=== PATIENT | male | born 1950 | race Caucasian/White ===

== ENCOUNTER 2024-09-08 23:48 | Emergency (ER) | payer OTHER, SELFPAY ==
[2024-09-08 23:49] VITALS: BP 178/121; PULSE 166; RESP 14; TEMP 36.7; O2SAT 96; BMI 41.5
--- NOTE | 2024-09-09 00:01 | EKG12_ITS ---
Test Reason : CP Blood Pressure : */* mmHG Vent. Rate : 96 BPM Atrial Rate : 96 BPM P-R Int : 160 ms QRS Dur : 126 ms QT Int : 342 ms P-R-T Axes : 33 -3 39 degrees QTcB Int : 432 ms Sinus rhythm with occasional Premature ventricular complexes Non-specific intra-ventricular conduction block Inferior infarct , age undetermined Abnormal ECG Confirmed by Randy Quigley ([id number]), medical editor FRANCES COLMENARES ([id number]) on 09/11/2024 6:24:19 AM Referred By: Confirmed By: Randy Quigley
--- NOTE | 2024-09-09 00:02 | EDS_ITS ---
HPI History of Present Illness Chief Complaint: Palpitations Informant: patient, spouse/S.O. and family (Son) Narrative Narrative: 74-year-old male presenting to the emergency room with palpitations. Patient states tonight he was at a calling hours for a when he began to have heaviness in his fingers. He felt that his heart was racing and slight chest discomfort. He has not experienced this before. He came to the emergency room and while nursing was starting an IV the patient reportedly converted from a narrow complex tachycardic rhythm at a rate of around 150 back to sinus rhythm and his symptoms abated. He notes that for the past couple months he has been taking triamterene hydrochlorothiazide for leg swelling and blood pressure. He states he had a home sleep study a month ago and is waiting to hear the results of that. [facility] Medical History Hypertension Home Medications ?Medication ?Instructions ?Recorded ?Last Taken ?Type triamterene 37.5 0.5 cap PO DAILY 09/08/24 Unknown History mg-hydrochlorothiazide 25 mg capsule Allergy/AdvReac Type Severity Reaction Status Date / Time No Known Allergies Allergy Verified 09/08/24 23:50 Social History Smoking Status: Never smoker ROS ROS ED Constitutional Constitutional ED: Denies chills, fever(s) or weight loss Eyes Eyes: Denies change in vision or diplopia ENT ENT ED: Denies ear pain, rhinorrhea or sore throat Cardiovascular Cardiovascular: Reports chest pain and palpitations; Denies orthopnea or racing heartbeat Respiratory/Chest Respiratory/Chest: Denies cough, dyspnea or orthopnea Gastrointestinal Gastrointestinal: Denies abdominal pain, diarrhea, nausea or vomiting Genitourinary Genitourinary ED: Denies dysuria, hematuria or urinary frequency Musculoskeletal Musculoskeletal: Denies arthralgias or myalgias Integumentary Denies abscess or rash Neurologic Neurologic: Denies headache(s) or weakness Psychiatric Psychiatric: Denies anxiety, depression, suicidal ideation or suicidal thoughts Endocrine Endocrinology: Denies polydipsia, polyphagia or polyuria Allergic/Immunologic Allergic/Immunologic ED: Denies mouth swelling, tongue swelling or urticaria EXAM Physical Exam Const Vital Signs: 09/08/24 23:49 09/08/24 23:49 09/09/24 00:21 Temperature 98.1 F Temperature Source Oral Pulse Rate 166 H 95 Respiratory Rate 14 16 Respiratory Effort Normal Non-Labored Blood Pressure 178/121 H 150/99 H Blood Pressure Mean 140 116 Pulse Ox 96 93 Oxygen Delivery Method Room Air Room Air 09/09/24 01:00 Temperature Temperature Source Pulse Rate 97 Respiratory Rate 18 Respiratory Effort Blood Pressure 135/93 H Blood Pressure Mean 107 Pulse Ox 93 Oxygen Delivery Method Room Air Positive well nourished, well developed and obese General Appearance ED: well developed and NAD Nutritional Appearance: obese HEENT Reports normocephalic, head/scalp atraumatic and moist mucous membranes Eyes PERRL and EOMs intact bilaterally Neck no lymphadenopathy, supple and no JVD Resp normal respiratory effort and clear to auscultation bilaterally Cardio regular rate, regular rhythm and no murmurs GI normal to inspection, nondistended, normoactive bowel sounds and non-tender Palpation: soft Back/Spine no CVA tenderness and normal ROM Extremity General Extremety ED: Yes edema General Extremity: edema bilateral lower extremity Details: mild Neuro oriented x3 and CN's II-XII intact bilaterally Sensorium / Orientation: alert Motor Exam: strength 5/5 throughout Psych mental status grossly normal Mood & Affect: Negative for depressed or tearful Skin no rashes or lesions noted and no wounds MDM MDM MDM Narrative Medical decision making narrative: Differential diagnosis includes cardiac dysrhythmias (SVT AVNRT atrial flutter atrial fibrillation) electrolyte abnormalities anemia sleep apnea with pulmonary hypertension hyperthyroidism Patient is EKG is in normal sinus rhythm. He is maintaining this at a rate around 90 blood pressures come down currently 135/93. My independent interpretation of his chest x-ray is normal mediastinal silhouette. Hemoglobin is 16.6. Sodium potassium magnesium within normal limits glucose 132. BUN of 23 creatinine 1.14 troponin is 9 TSH is 4.320. I spoke with the patient and his family regarding the above results. I am recommending a cardiology outpatient evaluation. We talked about whether or not to start him on a rate limiting agent such as metoprolol but as this is an isolated event and he would prefer not to be on medications I think it is reasonable to hold. We talked about anticoagulation but I do not feel strongly that this is needed at this time. His [id number] score is 2. Patient is comfortable with this plan we will schedule outpatient follow-up return if worsening or concerns. History & Record Review Discussion w/independent historian: Patient, Family (Son) and Significant other Lab Data Attestation: I reviewed the patient's lab results. Labs: Laboratory Results - last 24 hr 09/08/24 09/08/24 00:00 23:50 WBC 12.1 H RBC 5.59 Hgb 16.6 H Hct 49.9 MCV 89.3 MCH 29.7 MCHC 33.3 RDW Std Deviation 44.1 H RDW Coeff of Jeanette 13.5 Plt Count 292 MPV 10.0 Immature Gran % (Auto) 0.600 Neut % (Auto) 52.9 Lymph % (Auto) 30.4 [place] % (Auto) 9.9 Eos % (Auto) 5.5 H Baso % (Auto) 0.7 Absolute Neuts (auto) 6.4 Absolute Lymphs (auto) 3.67 Nucleated RBC % 0 Sodium 140 Potassium 3.6 Chloride 106 Carbon Dioxide 27.0 Anion Gap 7 BUN 23 H Creatinine 1.14 Estim Creat Clear Calc 68.28 Est GFR (MDRD) Af Amer 81 Est GFR (MDRD) Non-Af 67 BUN/Creatinine Ratio 20.2 H Glucose 132 H Calcium 9.2 Magnesium 2.0 Troponin I High Sens 9 TSH 4.320 H Radiography Diagnostic Testing: Clinical Impression(s) from Imaging Studies Chest X-Ray 09/09/24 00:15 IMPRESSION: No radiographic evidence of acute cardiopulmonary disease. Electronically Signed: Randy Smart MD at 0:37 EST , EKG Initial EKG: Attestation: I personally reviewed and interpreted this EKG as follows: Comments: Sinus vent rate of 96 bpm. PVCs noted Discharge Plan Triage Chief Complaint: Palpitations ED Provider: Jovan Saravia Dx/Rx/DC Orders Clinical Impression: SVT (supraventricular tachycardia), Heart palpitations Instructions: ED Understanding Supraventricular Tachycardia (SVT) Prescriptions: No Action triamterene-hydrochlorothiazid 37.5-25 mg capsule 0.5 cap PO DAILY Primary Care Provider: Vidal Howe Referrals: Vidal Howe, [Primary Care Provider] - (Call on Wednesday to see about the results of your sleep test.) Randy uQigley MD [Med Staff - Active Staff] - As soon as possible (For cardiology evaluation) Print Language: Tanzanian Disposition Disposition: Home, Self Care
--- NOTE | 2024-09-09 00:15 | RAD_ITS ---
EXAM: XR CHEST, 1 VIEW CLINICAL INDICATION: chest pain TECHNIQUE: Frontal view of the chest. COMPARISON: No relevant prior studies available. FINDINGS: LUNGS AND PLEURAL SPACES: Unremarkable. No consolidation or edema. No pneumothorax. No effusion. HEART: Unremarkable. Cardiac silhouette not enlarged. MEDIASTINUM: Central airways and mediastinal contour are unremarkable. BONES/JOINTS: Unremarkable. No acute fracture. SOFT TISSUES: Unremarkable. RAD/Chest 1 View (Portable) IMPRESSION: No radiographic evidence of acute cardiopulmonary disease. Electronically Signed: Randy Smart MD at 0:37 EST ,
[2024-09-09 00:21] VITALS: BP 150/99; PULSE 95; RESP 16; O2SAT 93
[2024-09-09 00:22] LABS: Absolute Lymphocyte Count 3.67 X10^3/uL (0.83-4.51); Absolute Neutrophil Count 6.4 X10^3/uL (2.0-7.7); Basophil# 0.09 X10^3/uL; Basophil% 0.7 % (0-1); Eosinophil# 0.66 X10^3/uL; Eosinophils% 5.5 % (0-5); Hematocrit 49.9 % (40-54); Hemoglobin 16.6 g/dL (13.0-16.5); Lymphocyte # 3.67 X10^3/ul (0.83-4.51); Lymphocyte % 30.4 % (19-41); Mean Corp Hgb Conc 33.3 g/dL (32-36); Mean Corpuscular Hgb 29.7 pg (27.0-32.0); Mean Corpuscular Volume 89.3 fL (80-94); Monocyte# 1.19 X10^3/uL; Monocyte% 9.9 % (0-10); NRBC Flagged by Analyzer 0 % (0-5); Neutrophil % 52.9 % (47-70); Platelet Count 292 K/mm3 (150-450); RBC Distribution Width CV 13.5 % (11.6-14.6); RBC Distribution Width SD 44.1 fl (35.1-43.9); Red Blood Count 5.59 M/mm3 (4.6-6.2); White Blood Count 12.1 K/mm3 (4.4-11.0)
[2024-09-09 00:44] LABS: Anion Gap 7 (5-15); BUN 23 mg/dL (7-18); BUN/Creat Ratio 20.2 RATIO (10-20); Calcium,Total 9.2 mg/dL (8.5-10.1); Chloride 106 mmol/L (98-107); Creatinine, Serum 1.14 mg/dL (0.70-1.30); EST Glomerular Filtration Rate 67 mL/min (>60); Est Glom Filt Rate - Afr Amer 81 mL/min (>60); Estimated Creatinine Clearance 68.28 ml/min; Glucose 132 mg/dL (74-106); Potassium 3.6 mmol/L (3.5-5.1); Sodium Level 140 mmol/L (136-145); Troponin-I HS 9 pg/mL (3.0-78.0)
[2024-09-09 01:00] VITALS: BP 135/93; PULSE 97; RESP 18; O2SAT 93
[2024-09-09 01:26] VITALS: BP 129/89; PULSE 91; RESP 16; TEMP 36.1; O2SAT 97
== END 2024-09-09 01:27 | disposition home or self-care (01) ==
PROVIDERS: Emergency Provider Emergency Medicine; PCP Family Medicine; Visit Provider Emergency Medicine
DX: I47.10 Supraventricular tachycardia, unspecified (principal); I10 Essential (primary) hypertension
CPT/HCPCS: 71045; 80048; 83735; 84443; 84484; 85025; 93005; 99284; A4216

== ENCOUNTER → 2024-10-10 | Outpatient (CLI) | payer SELFPAY ==
--- NOTE | 2024-10-10 08:52 | ECHOD_ITS ---
Reason For Study: PALPITATIONS Procedure This was a 2D Doppler, Color Flow transthoracic echocardiogram. The study was technically difficult. Exam performed in department. Left Ventricle Normal LV size. Mild concentric left ventricular hypertrophy. Left ventricular systolic function is normal. Stage 1 diastolic dysfunction. The left ventricular ejection fraction is 55 %. No regional wall motion abnormalities noted. Right Ventricle Normal right ventricle. Normal systolic function. Atria Normal left atrium. Normal right atrium. Mitral Valve Normal mitral valve. Tricuspid Valve Normal tricuspid valve. Aortic Valve Trisinus/trileaflet aortic valve. Pulmonic Valve The pulmonic valve is not well visualized. Great Vessels Normal aortic root. The pulmonary artery is normal size. Normal inferior vena cava. Pericardium/Pleural No pericardial effusion. MMode/2D Measurements & Calculations LVIDd: 5.3 cm IVSd: 1.4 cm LVOT diam: 2.1 cm LVIDs: 3.5 cm LVPWd: 1.4 cm LVOT area: 3.4 cm2 RVDd: 4.0 cm FS: 32.8 % asc Aorta Diam: 3.9 cm LAV(MOD-bp): 28.5 ml LVAd ap4: 27.0 cm2 LAV(MOD-bp) Indexed: 12.8 ml/m2 LVLd ap4: 7.4 cm LAV(MOD-sp2): 35.6 ml EDV(MOD-sp4): 84.1 ml LAV(MOD-sp4): 23.7 ml EDV(sp4-el): 83.3 ml LVAs ap4: 15.5 cm2 LVLs ap4: 6.5 cm ESV(MOD-sp4): 33.8 ml ESV(sp4-el): 31.5 ml EF(MOD-sp4): 59.8 % EF(sp4-el): 62.1 % LVAd ap2: 21.8 cm2 SV(MOD-sp4): 50.3 ml SV(MOD-sp2): 38.7 ml LVLd ap2: 6.9 cm SI(MOD-sp4): 22.5 ml/m2 SI(MOD-sp2): 17.3 ml/m2 EDV(MOD-sp2): 56.4 ml EDV(sp2-el): 58.2 ml LVAs ap2: 10.8 cm2 LVLs ap2: 5.6 cm ESV(MOD-sp2): 17.7 ml ESV(sp2-el): 17.8 ml EF(MOD-sp2): 68.5 % SV(sp4-el): 51.8 ml Ao sinus diam: 3.[address] Junction: 3.1 cm LA dimension(2D): 3.5 cm LA A4 area: 12.4 cm2 RA A4 area: 13.6 cm2 TAPSE: 2.7 cm Time Measurements MV dec time: 0.20 sec Doppler Measurements & Calculations MV E max mani: 66.2 cm/sec Lat Peak E' Mani: 8.9 cm/sec Med Peak E' Mani: 7.2 cm/sec MV A max mani: 100.4 cm/sec E/E' lat: 7.5 E/E' med: 9.2 MV E/A: 0.66 MV dec slope: 327.8 cm/sec2 Ao V2 max: 140.1 cm/sec LV V1 max: 102.1 cm/sec Ao max P.9 mmHg LV V1 max P.2 mmHg Ao V2 mean: 97.1 cm/sec LV V1 mean P.9 mmHg Ao mean P.3 mmHg LV V1 mean: 83.3 cm/sec Ao V2 VTI: 29.9 cm LV V1 VTI: 22.8 cm AV (velocity ratio): 0.76 [place](I,D): 2.6 cm2 [place](V,D): 2.5 cm2 SV(LVOT): 77.7 ml PA V2 max: 90.3 cm/sec ECHO/Echo Complete Interpretation Summary Normal LV size. Left ventricular systolic function is normal. Mild concentric left ventricular hypertrophy. Stage 1 diastolic dysfunction. The left ventricular ejection fraction is 55 %. Ordering Physician: Randy Quigley Referring Physician: BANDAR COLBERT Performed By: Zohra Garcia RDCS
== END | disposition home or self-care (01) ==
LOC: CVS 08:50
PROVIDERS: PCP Family Medicine; Referring Provider Internal Medicine Cardiovascular Disease; Visit Provider Internal Medicine Cardiovascular Disease
DX: I47.10 Supraventricular tachycardia, unspecified (principal); R00.2 Palpitations
CPT/HCPCS: 93225; 93226; 93306

== ENCOUNTER → 2025-03-29 | Outpatient (CLI) | payer SELFPAY ==
[2025-03-29 13:19] LABS: Anion Gap 12 (5-15); BUN 17 mg/dL (4-19); BUN/Creat Ratio 17.3 RATIO (10-20); Calcium,Total 9.6 mg/dL (7.6-11.0); Carbon Dioxide 22.6 mmol/L (21.0-32.0); Chloride 105 mmol/L (98-108); Creatinine, Serum 0.96 mg/dL (0.70-1.20); EST Glomerular Filtration Rate 83 (>60); Glucose 95 mg/dL (70-99); Magnesium 2.2 mg/dL (1.5-2.2); Potassium 4.3 mmol/L (3.3-5.1); Sodium Level 140 mmol/L (133-145)
== END | disposition home or self-care (01) ==
LOC: LAB 11:04
PROVIDERS: PCP Family Medicine; Referring Provider Physician Assistant Medical; Visit Provider Physician Assistant Medical
DX: I49.3 Ventricular premature depolarization (principal)
CPT/HCPCS: 36415; 80048; 83735; 84443

== ENCOUNTER → 2025-04-12 | Outpatient (CLI) | payer SELFPAY | END | disposition home or self-care (01) | LOC: PSN 08:44 | PROVIDERS: PCP Family Medicine; Referring Provider Physician Assistant Medical; Visit Provider Physician Assistant Medical | DX: I49.3 Ventricular premature depolarization (principal) | CPT/HCPCS: 93225; 93226 ==

== ENCOUNTER → 2025-06-15 | Outpatient (CLI) | payer SELFPAY ==
--- OUTSIDE RECORDS SUMMARY | 2025-06-15 08:43 | XMS RPT_ITS | CCD ---
Author Organization [facility] Care Team Providers Care Healthcare Insurance Sales Agent Name Role Phone JODY LEAVITT Attending Unavailable JODY LEAVITT Primary Care Unavailable JODY LEAVITT Admitting Unavailable Dr. Vidal Howe DO Primary Care Provider [phone] Dr. Vidal Howe DO Referring Provider Arcelia Horne Attending Provider Arcelia Horne Referring Provider [phone] Shyam, Vidal Primary Care Unavailable Arcelia Horne Referring Unavail able Randy Quigley Attending Unavailable Good Cesar Attending Unavailable Shyam, Vidal Primary Care Unavailable Randy Quigley Referring Unavailable Good Cesar Attending Unavailable Shyam, Vidal Primary Care Unavailable Shyam, Vidal Primary Care Unavailable Arcelia Horne Attending Unavail able Shyam, Vidal Referring Unavailable Shyam, Vidal Referring Unavailable Randy Quigley Attending Unavailable Shyam, Vidal Primary Care Unavailable Randy Quigley Attending Unavailable Randy Quigley Referring Unavailable Shyam, Vidal Primary Care Unavailable Jovan Saravia Attending Unavailable Shyam, Vidal Primary Care Unavailable Shyam, Vidal Primary Care Unavailable Arcelia Horne Referring Unavail able Arcelia Horne Attending Unavail able Arcelia Horne Referring Unavail able Shyam, Vidal Primary Care Unavailable Arcelia Horne Attending Unavail able Arcelia Horne Referring Unavail able Shyam, Vidal Primary Care Unavailable Arcelia Horne Attending Unavail able Medications Current Medications Medication Drug Class(es) Dates Sig (Normalized) Sig (Original) 24 hr dilTIAZem hydrochloride 120 mg extended release oral capsule (3 sources) Calcium Channel Pao Start: 01-29-2025 take 1 capsule by mouth once daily in the morning Diltiazem Hcl 120 mg capsule,extended release 24hr Active 120 mg PO EVERY MORNING 30 January 29, 2025 12:00am hydroCHLOROthiazide 25 mg / triamterene 37.5 mg oral capsule (3 sources) Potassium-spari ng Diuretic, Thiazide Diuretic Start: 09-08-2024 Triamterene-Hydr ochlorothiazid 37.5-25 mg capsule Active 0.5 NMA PO DAILY September 08, 2024 1:00am Completed/Discontinued Medications Medication Drug Class(es) Dates Sig (Normalized) Sig (Original) 24 hr metoprolol succinate 25 mg extended release oral tablet (3 sources) beta-Adrenergic Pao Start: 10-24-2024 End: 01-29-2025 take 1 tablet by mouth once daily Metoprolol Succinate 25 mg tablet extended release 24 hr Discontinued 25 mg PO daily 90 3 October 24, 2024 1:00am January 29, 2025 4:23pm Problems Problem Classification Problem Date Documented Date Episodic/Chronic Cardiac dysrhythmias (9 sources) Multiple premature ventricular complexes; Translations: [Ventricular premature depolarization] Onset: 05-31-2025 03-29-2025 Chronic Cardiac dysrhythmias (5 sources) Palpitations; Translations: [Palpitations] Onset: 03-29-2025 09-22-2024 Episodic Essential hypertension (6 sources) Hypertensive disorder; Translations: [Essential (primary) hypertension] 09-29-2024 Chronic Residual codes; unclassified (6 sources) Obstructive sleep apnea syndrome; Translations: [Obstructive sleep apnea (adult) (pediatric)] 09-22-2024 Chronic Comment on above: Severe ION. Signific ant oxygen desaturation. Specifically, the time SpO2 was at or below 88% was 10 min. (3%) 08/02/24 Unclassified (1 source) Supraventricular tachycardia, unspecified; Translations: [Supraventricular tachycardia, unspecified] Onset: 09-29-2024 Results Test Name Value Interpretation Reference Range Facility Anion gap in Serum or Plasma Ordered By: Arcelia Alfaro on 03-29-2025 Anion gap [Moles/Vol] 12 mmol/L 5-15 [facility] BUN/creatinine ratioOrdered By: Arcelia Alfaro on 03-29-2025 Urea nitrogen/Creatinin e [Mass ratio] 17.3 mg/mg 10-20 [facility] Basic Metabolic Profile (BMP )on 03-29-2025 BUN/CRE 17.3 RATIO Normal - [facility] Comment on above: Performed By: #### L 501.5200, L501.9520, L500.2500 #### [facility] [address] [place], [address] Calcium [Mass/Vol] 9.6 mg/dL Normal 7.6-11.0 [facility] Comment on above: Performed By: #### L 501.5200, L501.9520, L500.2500 #### [facility] [address] [place], [address] Chloride [Moles/Vol] 105 mmol/L Normal 98-108 [facility] Comment on above: Performed By: #### L 501.5200, L501.9520, L500.2500 #### [facility] [address] [place], [address] CO2 [Moles/Vol] 22.6 mmol/L Normal 21.0-32.0 [facility] Comment on above: Performed By: #### L 501.5200, L501.9520, L500.2500 #### [facility] [address] [place], [address] Creatinine [Mass/Vol] 0.96 mg/dL Normal 0.70-1.20 [facility] Comment on above: Performed By: #### L 501.5200, L501.9520, L500.2500 #### [facility] [address] [place], [address] GAP 12 Normal 5-15 [facility] Comment on above: Performed By: #### L 501.5200, L501.9520, L500.2500 #### [facility] [address] [place], [address] GFR/1.73 sq M.predicted among non-blacks MDRD (S/P/Bld) [Vol rate/Area] 83 mL/min/{1.73_m2} Normal >60 [facility] Comment on above: Result Comment: mL/m in/1.73m2 CKD-EPI Creatinine Equation (2020) Performed By: #### L 501.5200, L501.9520, L500.2500 #### [facility] [address] [place], [address] Glucose [Mass/Vol] 95 mg/dL Normal 70-99 [facility] Comment on above: Performed By: #### L 501.5200, L501.9520, L500.2500 #### [facility] [address] [place], [address] Potassium [Moles/Vol] 4.3 mmol/L Normal 3.3-5.1 [facility] Comment on above: Performed By: #### L 501.5200, L501.9520, L500.2500 #### [facility] [address] [place], [address] Sodium [Moles/Vol] 140 mmol/L Normal 133-145 [facility] Comment on above: Performed By: #### L 501.5200, L501.9520, L500.2500 #### [facility] [address] [place], [address] Urea nitrogen [Mass/Vol] 17 mg/dL Normal 4-19 [facility] Comment on above: Performed By: #### L 501.5200, L501.9520, L500.2500 #### [facility] [address] [place], [address] Carbon dioxide, total [Moles /volume] in Central venous bloodOrdered By: Arcelia Alfaro on 03-29-2025 CO2 [Moles/Vol] 22.6 mmol/L 21.0-32.0 [facility] Cardiology Visit Reporton Cardiology Visit Report [facility] [address] [place], [place] [address] OFFICE VISIT Date of Service: 03/29/25 MR#: [id number] Acct: [id number] Name: MISAEL MARTINO Rep #: [id number] : 1950 Provider: BENJAMIN Charles Age/Sex: 75/M Location: [facility] Status: Signed HPI HPI History of Present Illness Details: iMsael Martino is a 75-year-old gentleman with a history of hypertension, hyperlipidemia, frequent PVCs. He recently established with us for his PVC burden. He did undergo an echocardiogram which did demonstrate a preserved ejection fraction of 55%. Holter monitor demonstrated a PVC burden of 5%. He was initially started on metoprolol however PCP felt that his heart rate was low as he was getting it in the 20s on his pulse oximeter. This was switched over to diltiazem. He did not like the way he felt on the diltiazem. He has since stopped this. He does feel that his palpitations are more felt in the evening. He does note on the pulse oximeter his heart rate is frequently in the 30s. However in the blood pressure machine at home it is not less than 50. He does sometimes have dizziness. He does not have any syncope. He is using his CPAP. EKG today demonstrates sinus rhythm with ventricular bigeminy with a heart rate of 61. Intake Vital Signs 09/29/24 10:31 03/29/25 10:00 Height 5 ft 6 in 5 ft 6 in Weight: 254 lb BMI 41.0 BP 143/69 H Blood Pressure Location Lt brachial Position Sitting Respiration 16 Pulse 31 L Pulse Source Monitor Intake Visit Reasons: 6 M FU Computer Analyst Required: No Accompanied by: Is patient in pain?: No Allergies No Known Allergies Allergy (Verified 03/29/25 10:04) Medications ???Medication ???Instructions ???Recorded ???Confirmed ???Type triamterene 37.5 0.5 cap PO DAILY 09/08/24 03/29/25 History mg-hydrochlorothiazide 25 mg capsule diltiazem HCl 120 mg 120 mg PO QAM #30 caps 01/29/25 Rx capsule,extended release 24 hr Ejection fraction %: 55 Have you fallen in the past year?: Yes (trips) [facility] Medical History (Updated 03/29/25 @ 10:49 by Arcelia Alfaro PA, PA) Frequent PVCs Neuropathy ION (obstructive sleep apnea) SVT (supraventricular tachycardia) Heart palpitations Hypertension Surgical History History of appendectomy History of tonsillectomy Family History Brother Prostate CA Brother CAD (coronary artery disease) Social History Smoking Status: Never smoker alcohol intake: never substance use type: does not use caffeine: Yes ROS Const Const: Negative for fatigue or weakness Eyes Eyes: Negative for change in vision ENT ENT: Positive for dizziness; Negative for balance problems Cardio Chest Pain: No Palpitations: Yes feels like its: fast and skipping Edema: Bilateral Resp Respiratory: Negative for SOB with activity, SOB at rest or SOB orthopnea SOB lying down GI GI: Positive for heartburn (mild-improving); Negative nausea Musc Musc: Negative for balance problems Neuro Neuro: Positive for dizziness; Negative for lightheadedness, near syncope, syncope or weakness Endo Endo: Negative for fatigue Cardiology Exam Const Appearance: cooperative, no acute distress and well developed Orientation: alert, awake and oriented x3 Head Head: normocephalic and atraumatic Mouth: moist mucous membranes Eyes General: appearance normal, both eyes and all related structures Conjunctivae: conjunctivae normal Pupils: PERRL EOM: EOM intact bilaterally Neck Neck: normal visual inspection, no lymphadenopathy and no JVD Carotids: Negative bruit Neck Mass: Negative Neck mass Chest Chest inspection: normal inspection of the chest and symmetric chest movement Auscultation: Bilateral: Clear to Auscultation Cardio Palpation: normal PMI Rate: regular rate Rhythm: regular rhythm and ectopic beats Heart sounds: S1 normal and S2 normal; Negative rub, gallop or murmur GI GI: normal to inspection, soft, no hepatosplenomegaly and bowel sounds present; Negative tender Neuro General: patient alert, patient awake, patient oriented x3, CN's II-XI intact bilaterally and moves all extremities Extremities Pulses: Normal: Right Posterior Tibial Pulse, Left Posterior Tibial Pulse, Right Radial Pulse and Left Radial Pulse Lower Extremity Edema: None: Bilateral Psych Psychological: normal affect Supplemental Info Supplemental Information Echo Complete 03/2025 Interpretation Summary Normal LV size. Left ventricular systolic function is normal. Mild concentric left ventricular hypertrophy. Stage 1 diastolic dy (more content not included)... Normal [facility] Chloride assayOrdered By: Korina Alfaro on 03-29-2025 Chloride [Moles/Vol] 105 mmol/L 98-108 [facility] Glomerular filtration rate ( GFR) estimation/1.73 sq m using serum, plasma, or whole bOrdered By: Arcelia Alfaro on 03-29-2025 GFR/1.73 sq M.predicted among non-blacks MDRD (S/P/Bld) [Vol rate/Area] 83 mL/min/{1.73_m2} >60 [facility] Comment on above: mL/min/1.73m2 CKD-EP I Creatinine Equation (2020) Magnesiumon 03-29-2025 Magnesium [Mass/Vol] 2.2 mg/dL Normal 1.5-2.2 [facility] Comment on above: Performed By: #### L 501.5200, L501.9520, L500.2500 #### [facility] [place], [address] Magnesium measurement (mass/ volume)Ordered By: Arcelia Alfaro on 03-29-2025 Magnesium (Unsp spec) [Mass/Vol] 2.2 mg/dL 1.5-2.2 [facility] Potassium measurement (mass/ volume)Ordered By: Arcelia Alfaro on 03-29-2025 Potassium (Unsp spec) [Mass/Vol] 4.3 mmol/L 3.3-5.1 [facility] Serum creatinine measurement (mass/volume)Ordered By: Arcelia Alfaro on 03-29-2025 Creatinine [Mass/Vol] 0.96 mg/dL 0.70-1.20 [facility] Serum glucose measurement (m ass/volume)Ordered By: Areclia Alfaro on 03-29-2025 Glucose [Mass/Vol] 95 mg/dL 70-99 [facility] Serum or plasma calcium arlen urement (mass/volume)Ordered By: Arcelia Alfaro on 03-29-2025 Calcium [Mass/Vol] 9.6 mg/dL 7.6-11.0 [facility] Serum or plasma urea nitroge n measurement (mass/volume)Ordered By: Arcelia Alfaro on 03-29-2025 Urea nitrogen [Mass/Vol] 17 mg/dL 4-19 [facility] Sodium levelOrdered By: Allen Alfaro on 03-29-2025 Sodium [Moles/Vol] 140 mmol/L 133-145 [facility] TSH DL <= 0.005 mIU/L QnOrde red By: Arcelia Alfaro on 03-29-2025 TSH Qn 3.890 uIU/mL 0.300-4.200 [facility] Thyroid Stim Hormone (TSH)on 03-29-2025 TSH 3.890 uIU/mL Normal 0.300-4.200 [facility] Comment on above: Performed By: #### L 501.5200, L501.9520, L500.2500 #### [facility] [address] [place], [address] Echo Completeon 10-10-2024 Echo [facility] [address] [facility] [place] [address] Echo Complete 10/10/24 0859 MR#: [id number] Acct: [id number] Name: MISAEL MARTINO Rep #: [id number] : 1950 74 From: Good Cesar MD Attending Dr: Dr. Randy Quigley MD Status: FREDERIC STEWART Ordering Dr: Randy Quigley MD Date: 10/10/24 Location: [facility] Sex: M C Admitted: Reason For Study: PALPITATIONS Procedure This was a 2D Doppler, Color Flow transthoracic echocardiogram. The study was technically difficult. Exam performed in department. Left Ventricle Normal LV size. Mild concentric left ventricular hypertrophy. Left ventricular systolic function is normal. Stage 1 diastolic dysfunction. The left ventricular ejection fraction is 55 %. No regional wall motion abnormalities noted. Right Ventricle Normal right ventricle. Normal systolic function. Atria Normal left atrium. Normal right atrium. Mitral Valve Normal mitral valve. Tricuspid Valve Normal tricuspid valve. Aortic Valve Trisinus/trileaflet aortic valve. Pulmonic Valve The pulmonic valve is not well visualized. Great Vessels Normal aortic root. The pulmonary artery is normal size. Normal inferior vena cava. Pericardium/Pleural No pericardial effusion. MMode/2D Measurements Calculations LVIDd: 5.3 cm IVSd: 1.4 cm LVOT diam: 2.1 cm LVIDs: 3.5 cm LVPWd: 1.4 cm LVOT area: 3.4 cm2 RVDd: 4.0 cm FS: 32.8 % asc Aorta Diam: 3.9 cm LAV(MOD-bp): 28.5 ml LVAd ap4: 27.0 cm2 LAV(MOD-bp) Indexed: 12.8 ml/m2 LVLd ap4: 7.4 cm LAV(MOD-sp2): 35.6 ml EDV(MOD-sp4): 84.1 ml LAV(MOD-sp4): 23.7 ml EDV(sp4-el): 83.3 ml LVAs ap4: 15.5 cm2 LVLs ap4: 6.5 cm ESV(MOD-sp4): 33.8 ml ESV(sp4-el): 31.5 ml EF(MOD-sp4): 59.8 % EF(sp4-el): 62.1 % LVAd ap2: 21.8 cm2 SV(MOD-sp4): 50.3 ml SV(MOD-sp2): 38.7 ml LVLd ap2: 6.9 cm SI(MOD-sp4): 22.5 ml/m2 SI(MOD-sp2): 17.3 ml/m2 EDV(MOD-sp2): 56.4 ml EDV(sp2-el): 58.2 ml LVAs ap2: 10.8 cm2 LVLs ap2: 5.6 cm ESV(MOD-sp2): 17.7 ml ESV(sp2-el): 17.8 ml EF(MOD-sp2): 68.5 % SV(sp4-el): 51.8 ml Ao sinus diam: 3.[address] Junction: 3.1 cm LA dimension(2D): 3.5 cm LA A4 area: 12.4 cm2 RA A4 area: 13.6 cm2 TAPSE: 2.7 cm Time Measurements MV dec time: 0.20 sec Doppler Measurements Calculations MV E max mani: 66.2 cm/sec Lat Peak E' Mani: 8.9 cm/sec Med Peak E' Mani: 7.2 cm/sec MV A max mani: 100.4 cm/sec E/E' lat: 7.5 E/E' med: 9.2 MV E/A: 0.66 MV dec slope: 327.8 cm/sec2 Ao V2 max: 140.1 cm/sec LV V1 max: 102.1 cm/sec Ao max P.9 mmHg LV V1 max P.2 mmHg Ao V2 mean: 97.1 cm/sec LV V1 mean P.9 mmHg Ao mean P.3 mmHg LV V1 mean: 83.3 cm/sec Ao V2 VTI: 29.9 cm LV V1 VTI: 22.8 cm AV (velocity ratio): 0.76 AURORA(I,D): 2.6 cm2 AURORA(V,D): 2.5 cm2 SV(LVOT): 77.7 ml PA V2 max: 90.3 cm/sec ECHO/Echo Complete Interpretation Summary Normal LV size. Left ventricular systolic function is normal. Mild concentric left ventricular hypertrophy. Stage 1 diastolic dysfunction. The left ventricular ejection fraction is 55 %. Ordering Physician: Randy Quigley Referring Physician: VIDAL HOWE Performed By: Zohra Garcia RDCS 10/10/24 1145 Date Good Cesar MD CC: Dr. Vidal Howe MD; Dr. Randy Quigley MD Date Dictated: 10/10/2459 Date Transcribed: 10/10/24 1145 [place] Administrator: Signed Normal [facility] Cardiology Visit Reporton Cardiology Visit Report [facility] [address] [place] [address] OFFICE VISIT Date of Service: 09/29/24 MR#: [id number] Acct: [id number] Name: MISAEL MARTINO Rep #: [id number] : 1950 Provider: Dr. Randy crain MD Age/Sex: 74/M Location: [facility] Status: Signed HPI HPI History of Present Illness Details: Patient is a 74-year-old white male comes in for new patient visit after an ED evaluation September 08, 2024. Patient is in the office with his . He went to the emergency department on the evening 09/08/2024 with a tachycardia fast heart rate in the 150 bpm range. Just as he got to the emergency department as they were triaging him and starting an IV and starting to get him hooked up to an EKG as a stuck him with a needle he converted into a regular rhythm. His EKG in the emergency department done 1121 showed sinus rhythm at 96 bpm with PVCs there was a nonspecific interventricular conduction block and an old inferior wall infarct pattern. The patient had a couple more episodes that were short-lived in his home environment he underwent a sleep study which showed that he had obstructive sleep apnea. He has since been started on CPAP and has had no recurrence of any of his arrhythmia or palpitations since then. The patient denies any syncope or near syncope he is able to ambulate when he was going at a heart rate of 150. The patient has no prior history of coronary artery disease or cardiac issues. Of note his TSH was elevated at 4.3 in the emergency department August 2024. The patient has a history of hypertension which is well-controlled on minimal medical therapy. Patient's last lipids from December 2020 showed a total cholesterol of 169 HDL 33 LDL 107 and triglycerides 170. The patient is not on therapy. There is a history of coronary disease in the family. The patient does not smoke. He is hypertensive controlled with medications, hyperlipidemic, but not diabetic. Since the patient has been on CPAP he reports he feels much better he has more energy and he is active. He goes up and down a flight of stairs but he does get dyspnea with that exertion. He also gets dyspnea with carrying things up and down the stairs but he is able to do his actives of daily living without restrictions. He denies any chest tightness squeezing or any definitive anginal symptoms. He does report some occasional bilateral lower extremity edema at the sock lines. Intake Vital Signs 09/08/24 23:49 09/29/24 10:31 Height 5 ft 6 in 5 ft 6 in Weight: 259 lb BMI 41.8 BP 133/75 H Blood Pressure Location Lt brachial Position Sitting Respiration 20 H Pulse 56 L Pulse Source Monitor Pulse Oximetry (%) 94 Oxygen Delivery Method room air Intake Visit Reasons: Palps ([facility]) Computer Analyst Required: No Accompanied by: Is patient in pain?: No Allergies No Known Allergies Allergy (Verified 09/29/24 10:31) Medications ???Medication ???Instructions ???Recorded ???Confirmed ???Type triamterene 37.5 0.5 cap PO DAILY 09/08/24 09/29/24 History mg-hydrochlorothiazide 25 mg capsule Have you fallen in the past year?: No PFSH Medical History Neuropathy ION (obstructive sleep apnea) SVT (supraventricular tachycardia) Heart palpitations Hypertension Surgical History History of appendectomy History of tonsillectomy Family History Brother Prostate CA Brother CAD (coronary artery disease) Social History Smoking Status: Never smoker alcohol intake: never substance use type: does not use caffeine: Yes ROS Const Const: Negative for fatigue or weakness ENT ENT: Negative for dizziness or balance problems Cardio Chest Pain: No Palpitations: No Edema: Bilateral Muscle aches with walking: None Resp Respiratory: Positive for SOB with activity; Negative for SOB at rest or SOB orthopnea SOB lying down GI GI: Negative nausea, vomiting or heartburn Musc Musc: Negative for muscle weakness or balance problems Neuro Neuro: Negative for dizziness, lightheadedness, near syncope, syncope or weakness Endo Endo: Negative for fatigue Supplemental Info Supplemental Information Labs: No Data to Display Diagnostics: Electrocardiogram Chest X-Ray Pulmonary: No Data to Display Past Visits: Cardiology Visit 09/29/24 Assessment and Plan Assessment and Plan (1) Heart palpitations: Status: Acute Plan: Patient presented with palpitations that were not captured on the rhythm her EKG strip September 08, 2024. He spontaneousl (more content not included)... Normal [facility] 12 Lead EKGon 09-09-2024 12 Lead EKG [facility] [address] [place] [address] 12 Lead EKG 09/08/24 2352 MR#: [id number] Acct: [id number] Name: MISAEL MARTINO Rep #: [id number] : 1950 74 From: Randy Quigley MD Attending Dr: Status: DEP ER Ordering Dr: Jovan Saravia DO Date: 09/09/24 Location: ED Sex: M C Admitted: Test Reason : CP Blood Pressure : */* mmHG Vent. Rate : 96 BPM Atrial Rate : 96 BPM P-R Int : 160 ms QRS Dur : 126 ms QT Int : 342 ms P-R-T Axes : 33 -3 39 degrees QTcB Int : 432 ms Sinus rhythm with occasional Premature ventricular complexes Non-specific intra-ventricular conduction block Inferior infarct , age undetermined Abnormal ECG Confirmed by Randy Quigley ([id number]), brands editor FRANCES COLMENARES ([id number]) on 09/11/2024 6:24:19 AM Referred By: Confirmed By: Randy Quigley 09/11/24 0624 Date Randy Quigley MD CC: Dr. Vidal Howe MD; Dr. Jovan Saravia DO Signed Normal [facility] Basic Metabolic Profile (BMP )on 09-09-2024 BUN/CRE 20.2 RATIO High 10-20 [facility] Comment on above: Order Comment: 'TROP ' Serial specimen #1, #2 or #3: 1 Performed By: #### L 500.2500, L501.9520, L100.0100, L501.4020, L501.5200 #### [facility] [address] [place], [address] CA,Total 9.2 mg/dL Normal 8.5-10.1 [facility] Comment on above: Order Comment: 'TROP ' Serial specimen #1, #2 or #3: 1 Performed By: #### L 500.2500, L501.9520, L100.0100, L501.4020, L501.5200 #### [facility] [address] [place], [address] Chloride [Moles/Vol] 106 mmol/L Normal 98-107 [facility] Comment on above: Order Comment: 'TROP ' Serial specimen #1, #2 or #3: 1 Performed By: #### L 500.2500, L501.9520, L100.0100, L501.4020, L501.5200 #### [facility] [address] [place], [address] CO2 [Moles/Vol] 27.0 mmol/L Normal 21.0-32.0 [facility] Comment on above: Order Comment: 'TROP ' Serial specimen #1, #2 or #3: 1 Performed By: #### L 500.2500, L501.9520, L100.0100, L501.4020, L501.5200 #### [facility] [address] [place], [address] Creatinine [Mass/Vol] 1.14 mg/dL Normal 0.70-1.30 [facility] Comment on above: Order Comment: 'TROP ' Serial specimen #1, #2 or #3: 1 Result Comment: The validity of the calculated GFR GFRAA in patients over 70 years has not been determined. Clinical correlation is essential. Performed By: #### L 500.2500, L501.9520, L100.0100, L501.4020, L501.5200 #### [facility] [address] [place], [address] ECRCL 68.28 ml/min Normal [facility] Comment on above: Order Comment: 'TROP ' Serial specimen #1, #2 or #3: 1 Performed By: #### L 500.2500, L501.9520, L100.0100, L501.4020, L501.5200 #### [facility] [address] [place], [address] EST GFR - AA 81 mL/min Normal >60 [facility] Comment on above: Order Comment: 'TROP ' Serial specimen #1, #2 or #3: 1 Result Comment: Afri can Jamaican GFR Calc Performed By: #### L 500.2500, L501.9520, L100.0100, L501.4020, L501.5200 #### [facility] [address] [place], [address] GAP 7 Normal 5-15 [facility] Comment on above: Order Comment: 'TROP ' Serial specimen #1, #2 or #3: 1 Performed By: #### L 500.2500, L501.9520, L100.0100, L501.4020, L501.5200 #### [facility] [address] [place], [address] GFR/1.73 sq M.predicted among non-blacks MDRD (S/P/Bld) [Vol rate/Area] 67 mL/min/{1.73_m2} Normal >60 [facility] Comment on above: Order Comment: 'TROP ' Serial specimen #1, #2 or #3: 1 Result Comment: Non- GFR Calc Performed By: #### L 500.2500, L501.9520, L100.0100, L501.4020, L501.5200 #### [facility] [address] [place], [address] Glucose [Mass/Vol] 132 mg/dL High 74-106 [facility] Comment on above: Order Comment: 'TROP ' Serial specimen #1, #2 or #3: 1 Result Comment: Fast ing Glucose result greater than or equal to 126 mg/dL suggests DIABETES MELLITUS per A.D.A. criteria. Performed By: #### L 500.2500, L501.9520, L100.0100, L501.4020, L501.5200 #### [facility] [address] [place], [address] Potassium [Moles/Vol] 3.6 mmol/L Normal 3.5-5.1 [facility] Comment on above: Order Comment: 'TROP ' Serial specimen #1, #2 or #3: 1 Performed By: #### L 500.2500, L501.9520, L100.0100, L501.4020, L501.5200 #### [facility] [address] [place], [address] Sodium [Moles/Vol] 140 mmol/L Normal 136-145 [facility] Comment on above: Order Comment: 'TROP ' Serial specimen #1, #2 or #3: 1 Performed By: #### L 500.2500, L501.9520, L100.0100, L501.4020, L501.5200 #### [facility] [address] [place], [address] Urea nitrogen [Mass/Vol] 23 mg/dL High 7-18 [facility] Comment on above: Order Comment: 'TROP ' Serial specimen #1, #2 or #3: 1 Performed By: #### L 500.2500, L501.9520, L100.0100, L501.4020, L501.5200 #### [facility] [address] [place], [address] CBC W/Diff, Automatedon 11-2 3-2024 Absolute Lymph 3.67 X10 3/uL Normal 0.83-4.51 [facility] Comment on above: Performed By: #### L 500.2500, L501.9520, L100.0100, L501.4020, L501.5200 #### [facility] [address] [place], [address] Absolute Neut 6.4 X10 3/uL Normal 2.0-7.7 [facility] Comment on above: Performed By: #### L 500.2500, L501.9520, L100.0100, L501.4020, L501.5200 #### [facility] [address] [place], [address] Basophils/100 WBC (Bld) 0.7 % Normal 0-1 [facility] Comment on above: Performed By: #### L 500.2500, L501.9520, L100.0100, L501.4020, L501.5200 #### [facility] [address] [place], [address] Eosinophils/100 WBC (Bld) 5.5 % High 0-5 [facility] Comment on above: Performed By: #### L 500.2500, L501.9520, L100.0100, L501.4020, L501.5200 #### [facility] [address] [place], [address] Erythrocyte distribution width (RBC) [Ratio] 13.5 % Normal 11.6-14.6 [facility] Comment on above: Performed By: #### L 500.2500, L501.9520, L100.0100, L501.4020, L501.5200 #### [facility] [address] [place], [address] Hematocrit (Bld) [Volume fraction] 49.9 % Normal 40-54 [facility] Comment on above: Performed By: #### L 500.2500, L501.9520, L100.0100, L501.4020, L501.5200 #### [facility] [address] [place], [address] Hemoglobin (Bld) [Mass/Vol] 16.6 g/dL High 13.0-16.5 [facility] Comment on above: Performed By: #### L 500.2500, L501.9520, L100.0100, L501.4020, L501.5200 #### [facility] [address] [place], [address] IG% 0.600 Normal 0.0-0.9 [facility] Comment on above: Result Comment: IG% - Immature Granulocytes (promyelocytes, myelocytes and metamyelocytes) > 1% indicates that a LEFT SHIFT is Present. Performed By: #### L 500.2500, L501.9520, L100.0100, L501.4020, L501.5200 #### [facility] [address] [place], [address] Lymphocytes/100 WBC (Bld) 30.4 % Normal 19-41 [facility] Comment on above: Performed By: #### L 500.2500, L501.9520, L100.0100, L501.4020, L501.5200 #### [facility] [address] [place], [address] MCH (RBC) [Entitic mass] 29.7 pg Normal 27.0-32.0 [facility] Comment on above: Performed By: #### L 500.2500, L501.9520, L100.0100, L501.4020, L501.5200 #### [facility] [address] [place], [address] MCHC (RBC) [Mass/Vol] 33.3 g/dL Normal 32-36 [facility] Comment on above: Performed By: #### L 500.2500, L501.9520, L100.0100, L501.4020, L501.5200 #### [facility] [address] [place], [address] MCV (RBC) [Entitic vol] 89.3 fL Normal 80-94 [facility] Comment on above: Performed By: #### L 500.2500, L501.9520, L100.0100, L501.4020, L501.5200 #### [facility] [address] [place], [address] Monocytes/100 WBC (Bld) 9.9 % Normal 0-10 [facility] Comment on above: Performed By: #### L 500.2500, L501.9520, L100.0100, L501.4020, L501.5200 #### [facility] [address] [place], [address] Neutrophils/100 WBC (Bld) 52.9 % Normal 47-70 [facility] Comment on above: Performed By: #### L 500.2500, L501.9520, L100.0100, L501.4020, L501.5200 #### [facility] [address] [place], [address] Nucleated RBC (Bld) [#/Vol] 0 10*3/uL Normal 0-5 [facility] Comment on above: Performed By: #### L 500.2500, L501.9520, L100.0100, L501.4020, L501.5200 #### [facility] [address] [place], [address] Platelet mean volume (Bld) [Entitic vol] 10.0 fL Normal 6.2-12.0 [facility] Comment on above: Performed By: #### L 500.2500, L501.9520, L100.0100, L501.4020, L501.5200 #### [facility] [address] [place], [address] Platelets (Bld) [#/Vol] 292 10*3/uL Normal 150-450 [facility] Comment on above: Performed By: #### L 500.2500, L501.9520, L100.0100, L501.4020, L501.5200 #### [facility] [address] [place], [address] RBC (Bld) [#/Vol] 5.59 10*6/uL Normal 4.6-6.2 [facility] Comment on above: Performed By: #### L 500.2500, L501.9520, L100.0100, L501.4020, L501.5200 #### [facility] [address] [place], [address] RDW SD 44.1 fl High 35.1-43.9 [facility] Comment on above: Performed By: #### L 500.2500, L501.9520, L100.0100, L501.4020, L501.5200 #### [facility] [address] [place], [address] WBC (Bld) [#/Vol] 12.1 10*3/uL High 4.4-11.0 [facility] Comment on above: Performed By: #### L 500.2500, L501.9520, L100.0100, L501.4020, L501.5200 #### [facility] [address] [place], [address] Chest 1 View (Portable)on Chest 1 View (Portable) [facility] Imaging Services [address] [place] [address] Chest 1 View (Portable) MR#: [id number] Acct: [id number] Name: MISAEL MARTINO Rep #: [id number] : 1950 M 74 From: Randy Jules PCP: Dr. Vidal Howe MD Status: PRE ER Study: Chest 1 View (Portable) Date of Exam: 09/09/24 Exam# [id number] Ordering Dr: Jovan Saravia DO [id number] EXAM: XR CHEST, 1 VIEW CLINICAL INDICATION: chest pain TECHNIQUE: Frontal view of the chest. COMPARISON: No relevant prior studies available. FINDINGS: LUNGS AND PLEURAL SPACES: Unremarkable. No consolidation or edema. No pneumothorax. No effusion. HEART: Unremarkable. Cardiac silhouette not enlarged. MEDIASTINUM: Central airways and mediastinal contour are unremarkable. BONES/JOINTS: Unremarkable. No acute fracture. SOFT TISSUES: Unremarkable. RAD/Chest 1 View (Portable) IMPRESSION: No radiographic evidence of acute cardiopulmonary disease. Electronically Signed: Randy Smart MD at 0:37 EST , CC: Dr. Vidal Howe MD; Dr. Jovan Saravia DO [place] Administrator: Signed Normal [facility] Emergency Department Summary on 09-09-2024 Emergency Department Summary [facility] Medical Records Department [address] [place] [id number] Emergency Department Summary 09/09/24 MR#: [id number] Acct: [id number] Name: MISAEL MARTINO Rep #: [id number] : 1950 74 From: Jovan Saravia DO PCP: Dr. Vidal Howe MD Status:DEP ER Location: ED HPI History of Present Illness Chief Complaint: Palpitations Informant: patient, spouse/S.O. and family (Son) Narrative Narrative: 74-year-old male presenting to the emergency room with palpitations. Patient states tonight he was at a calling hours for a when he began to have heaviness in his fingers. He felt that his heart was racing and slight chest discomfort. He has not experienced this before. He came to the emergency room and while nursing was starting an IV the patient reportedly converted from a narrow complex tachycardic rhythm at a rate of around 150 back to sinus rhythm and his symptoms abated. He notes that for the past couple months he has been taking triamterene hydrochlorothiazide for leg swelling and blood pressure. He states he had a home sleep study a month ago and is waiting to hear the results of that. [facility] Medical History Hypertension Home Medications ???Medication ???Instructions ???Recorded ???Last Taken ???Type triamterene 37.5 0.5 cap PO DAILY 09/08/24 Unknown History mg-hydrochlorothiazide 25 mg capsule Allergy/AdvReac Type Severity Reaction Status Date / Time No Known Allergies Allergy Verified 09/08/24 23:50 Social History Smoking Status: Never smoker ROS ROS ED Constitutional Constitutional ED: Denies chills, fever(s) or weight loss Eyes Eyes: Denies change in vision or diplopia ENT ENT ED: Denies ear pain, rhinorrhea or sore throat Cardiovascular Cardiovascular: Reports chest pain and palpitations; Denies orthopnea or racing heartbeat Respiratory/Chest Respiratory/Chest: Denies cough, dyspnea or orthopnea Gastrointestinal Gastrointestinal: Denies abdominal pain, diarrhea, nausea or vomiting Genitourinary Genitourinary ED: Denies dysuria, hematuria or urinary frequency Musculoskeletal Musculoskeletal: Denies arthralgias or myalgias Integumentary Denies abscess or rash Neurologic Neurologic: Denies headache(s) or weakness Psychiatric Psychiatric: Denies anxiety, depression, suicidal ideation or suicidal thoughts Endocrine Endocrinology: Denies polydipsia, polyphagia or polyuria Allergic/Immunologic Allergic/Immunologic ED: Denies mouth swelling, tongue swelling or urticaria EXAM Physical Exam Const Vital Signs: 09/08/24 23:49 09/08/24 23:49 09/09/24 00:21 Temperature 98.1 F Temperature Source Oral Pulse Rate 166 H 95 Respiratory Rate 14 16 Respiratory Effort Normal Non-Labored Blood Pressure 178/121 H 150/99 H Blood Pressure Mean 140 116 Pulse Ox 96 93 Oxygen Delivery Method Room Air Room Air 09/09/24 01:00 Temperature Temperature Source Pulse Rate 97 Respiratory Rate 18 Respiratory Effort Blood Pressure 135/93 H Blood Pressure Mean 107 Pulse Ox 93 Oxygen Delivery Method Room Air Positive well nourished, well developed and obese General Appearance ED: well developed and NAD Nutritional Appearance: obese HEENT Reports normocephalic, head/scalp atraumatic and moist mucous membranes Eyes PERRL and EOMs intact bilaterally Neck no lymphadenopathy, supple and no JVD Resp normal respiratory effort and clear to auscultation bilaterally Cardio regular rate, regular rhythm and no murmurs GI normal to inspection, nondistended, normoactive bowel sounds and non-tender Palpation: soft Back/Spine no CVA tenderness and normal ROM Extremity General Extremety ED: Yes edema General Extremity: edema bilateral lower extremity Details: mild Neuro oriented x3 and CN's II-XII intact bilaterally Sensorium / Orientation: alert Motor Exam: strength 5/5 throughout Psych mental status grossly normal Mood Affect: Negative for depressed or tearful Skin no rashes or lesions noted and no wounds MDM MDM MDM Narrative Medical decision making narrative: Differential diagnosis includes cardiac dysrhythmias (SVT AVNRT atrial flutter atrial fibrillation) electrolyte abnormalities anemia sleep apnea with pulmonary hypertension hyperthyroidism Patient is EKG is in normal sinus rhythm. He is maintaining this at a rate around 90 blood pressures come down currently 135/93. My independent interpretation of his chest x-ray is normal mediastinal silhouette. Hemoglobin is 16.6. Sodium potassium magnesium within normal limits glucose 132. BUN of 23 creatinine 1.14 troponin is 9 TSH is 4.320. I spoke with the patient (more content not included)... Normal [facility] L501.4020on 09-09-2024 TROPONIN-I HS 9 pg/mL Normal 3.0-78.0 [facility] Comment on above: Order Comment: 'TROP ' Serial specimen #1, #2 or #3: 1 Result Comment: Plea se Note: New Test Units and Gender Specific Reference Ranges. For more information see Policy Stat Procedure [facility] High Sensitivity Troponin (TNIH) and attachments. Performed By: #### L 500.2500, L501.9520, L100.0100, L501.4020, L501.5200 #### [facility] [address] [place], [address] Magnesiumon 09-09-2024 Magnesium [Mass/Vol] 2.0 mg/dL Normal 1.6-2.6 [facility] Comment on above: Order Comment: 'TROP ' Serial specimen #1, #2 or #3: 1 Performed By: #### L 500.2500, L501.9520, L100.0100, L501.4020, L501.5200 ####[facility] [id number] [place], [place], [address] Thyroid Stim Hormone (TSH)on 09-09-2024 TSH 4.320 uIU/mL High 0.358-3.740 [facility] Comment on above: Order Comment: 'TROP ' Serial specimen #1, #2 or #3: 1 Performed By: #### L 500.2500, L501.9520, L100.0100, L501.4020, L501.5200 ####[facility] [id number] [place], [place], [id number] Vital Signs Date Time Vital Sign Value Performing Clinician Lucina guzman 03-29-2025 10:00-0400 Body height 167.[address] Vidal Howe DO Work Phone: [phone] [place] [address] 03-29-2025 10:00-0400 Body mass index (BMI) [Ratio] 41 kg/m2 Dr. Vidal Howe DO Work Phone: [facility] 03-29-2025 10:00-0400 Body weight 115.[address] Vidal Howe DO Work Phone: [facility] 03-29-2025 10:00-0400 Diastolic blood pressure 69 mm[Hg] Dr. Vidal Howe DO Work Phone: [phone] [address] 03-29-2025 10:00-0400 Heart rate 31 /min Dr. Vidal Howe DO Work Phone: [facility] 03-29-2025 10:00-0400 Respiratory rate 16 /min Dr. Vidal Howe DO Work Phone: [facility] 03-29-2025 10:00-0400 Systolic blood pressure 143 mm[Hg] Dr. Vidal Howe DO Work Phone: [facility] Encounters Encounter Date Encounter Type Care Provider Facility Start: 06-15-2025 ambulatory Vidal Howe Facility:[facility] Start: 04-12-2025 End: 04-12-[address] Vidal Howe DO Work Phone: -Pulmonary Services/Neurology Start: 04-12-2025 End: 04-12-2025 Patient encounter procedure Arcelia ALEXANDER -Pulmonary Services/Neurology Work Phone: Start: 04-12-2025 End: 04-12-2025 ambulatory Arcelia ALEXANDER Facility:[facility] Start: 03-29-2025 End: 03-29-[address] Vidal Howe DO Work Phone: [facility] Work Phone: Start: 03-29-2025 End: 03-29-2025 Patient encounter procedure Arcelia ALEXANDER -Laboratory Work Phone: Start: 03-29-2025 End: 03-29-2025 Patient encounter procedure Arcelia ALEXANDER -[facility] Work Phone: Start: 03-29-2025 End: 03-29-[address] Vidal Howe DO Work Phone: [facility] Work Phone: Start: 03-29-2025 End: 03-29-2025 ambulatory Arcelia ALEXANDER Facility:[facility] Start: 10-10-2024 ambulatory Randy Quigley Facility :[facility] Start: 10-10-2024 End: 10-10-2024 ambulatory Randy Quigley Facility:[facility] Start: 09-29-2024 End: 09-29-2024 ambulatory Vidal Howe Facility:[facility] Start: 09-08-2024 End: 09-09-2024 Emergency department patient visit Jovan Saravia Facility:[facility] Start: 12-05-2020 End: 02-18-2021 Patient encounter procedure JODY PA TREE [facility] Plan of Treatment Date Care Activity Detail Author Start: 03-29-2025 Evaluation of diagno stic study results [facility] 24 Hour ECG [facility] Basic metabolic 2008 panel with ionized calcium - Serum or Plasma [facility] spital Magnesium measurement [facility] Thyroid stimulating hormone measurement [facility] Payers Date Payer Category Payer Self-pay [id number] 2024 Self-pay Unknown [id number] 2.16.8 [id number] Unknown [id number] 2.16.8 [id number] Unknown [id number] 2.16.8 [id number] Unknown [id number] 2.16.8 [id number] Unknown [id number] 2.16.8 [id number] Unknown [id number] 2.16.8 [id number] Unknown [id number] 2.16.8 [id number] Unknown [id number] 2.16.8 [id number] Unknown [id number] 2.16.8 [id number] Unknown [id number] 2.16.8 [id number] Social History Date Type Detail Facility Start: 09-29-2024 Tobacco smoking stat us [facility] Never smoked tobacco (finding) [facility] Start: 1950 Sex Assigned At Male [facility] Evaluation note 03-29-2025 Note Date & Type Note Facility 03-29-2025 Evaluation note Diagnosis Onset Date Resolution Frequent PVCs acute March 29, 2025 9:56am ION (obstructive sleep apnea) acute March 29, 2025 9:56am Hypertension chronic March 29 025 9:56am [facility] Work Phone: Evaluation note Note Date & Type Note Facility Evaluation note Diagnosis Onset Date Resolution Frequent PVCs acute March 29, 2025 9:56am Heart palpitations acute March 182024 9:56am ION (obstructive sleep apnea) acute March 29, 2025 9:56am Hypertension chronic March 29 9:56am SVT (supraventricular tachycardia) suspected March 29, 2025 9:56am [facility] Work Phone: Reason for referral (narrative) Note Date & Type Note Facility Reason for referral (narrative) No reason for referral information available [facility] Work Phone: Summary Purpose Family History No Family History Records Found Relationship Condition Age at Onset Recorded Date/T vahid brother Malignant neoplasm of prostate Unknown brother Coronary artery disease Unknown Advance Directives No Advanced Directives Records FoundNo Advanced Directives Records Found Chief Complaint and Reason for Visit Chief Complaint Admit Date 6 M FU March 29, 2025 9:56 am PVC'S April 12, 2025 8:43 am Reason for Visit Admit Date Frequent PVCs March 29, 2025 9:56 am ION (obstructive sleep apnea) March 29, 2025 9:56am Hypertension March 29, 2025 9:56 am Chief Complaint Admit Date 6 M FU March 29, 2025 9:56 am Reason for Visit Admit Date Frequent PVCs March 29, 2025 9:56 am Heart palpitations March 29, 2025 9:56 am ION (obstructive sleep apnea) March 29, 2025 9:56am Hypertension March 29, 2025 9:56 am SVT (supraventricular tachycardia) March 29, 2025 9:56am Additional Source Comments (unrecognized sect ion and content) No Status Records FoundNo Status Records Found INFORMATION SOURCE (unrecogn ized section and content) DATE CREATED AUTHOR 12/06/2020 [facility] DATE CREATED AUTHOR AUTHOR'S ORGANIZ ATION 06/07/2025 [facility] Care Teams (unrecognized sec tion and content) Team Status: Active Member Role Status Dates Dr. Vidal Howe DO Primary Care Provider Active Team Status: Inactive Member Role Status Dates Dr. Vidal Howe DO Primary Care Provider Active Start: March 29, 2025 End: March 29, 2025 Dr. Vidal Howe DO Referring Provider Active Start: March 29, 2025 End: March 29, 2025 Arcelia ALEXANDER PA Attending Provider Active Start: March 29, 2025 End: March 29, 2025 Team Status: Inactive Member Role Status Dates Dr. Vidal Howe DO Primary Care Provider Active Start: March 29, 2025 End: March 29, 2025 Arcelia ALEXANDER PA Attending Provider Active Start: March 29, 2025 End: March 29, 2025 Arcelia ALEXANDER PA Referring Provider Active Start: March 29, 2025 End: March 29, 2025 Team Status: Active Member Role/Relationship Status Dates Dr. Vidal Howe DO Primary Care Provider Active Team Status: Inactive Member Role/Relationship Status Dates Dr. Vidal Howe DO Primary Care Provider Active Start: March 29, 2025 End: March 29, 2025 Dr. Vidal Howe DO Referring Provider Active Start: March 29, 2025 End: March 29, 2025 Arcelia ALEXANDER PA Attending Provider Active Start: March 29, 2025 End: March 29, 2025 Team Status: Inactive Member Role/Relationship Status Dates Dr. Vidal Howe DO Primary Care Provider Active Start: March 29, 2025 End: March 29, 2025 Arcelia ALEXANDER PA Attending Provider Active Start: March 29, 2025 End: March 29, 2025 Arcelia ALEXANDER PA Referring Provider Active Start: March 29, 2025 End: March 29, 2025 Team Status: Inactive Member Role/Relationship Status Dates Dr. Vidal Howe DO Primary Care Provider Active Start: April 12, 2025 End: April 12, 2025 Arcelia ALEXANDER PA Attending Provider Active Start: April 12, 2025 End: April 12, 2025 Arcelia ALEXANDER PA Referring Provider Active Start: April 12, 2025 End: April 12, 2025 Goals (unrecognized section and content) Goals may be documented in a n alternate sectionGoals may be documented in an alternate sectionGoals may be documented in an alternate section FOR RECORDS PERTAINING TO PATIENTS WHO ARE OR HAVE BEEN ENROLLED IN A CHEMICAL DEPENDENCY/SUBSTANCEABUSE PROGRAM, SOME INFORMATION MAY BE OMITTED. This clinical summary was aggregated from multiple sources. Caution should be exercised in using it in the provision of clinical care. This summary normalizes information from multiple sources, and as a consequence, information in this document may materially change the coding, format and clinical context of patient data. In addition, data may be omitted in some cases. CLINICAL DECISIONS SHOULD BE BASED ON THE PRIMARY CLINICAL RECORDS. [facility]. provides no warranty or guarantee of the accuracy or completeness of information in this document.
== END | disposition home or self-care (01) ==
LOC: PSN 08:19
PROVIDERS: PCP Family Medicine; Referring Provider Physician Assistant Medical; Visit Provider Physician Assistant Medical
DX: I49.3 Ventricular premature depolarization (principal)
CPT/HCPCS: 93225; 93226

== ENCOUNTER → 2025-07-18 | Outpatient (CLI) | payer SELFPAY ==
--- NOTE | 2025-07-18 18:56 | STRESSREP ---
Stress Test Report Pharmacologic myocardial perfusion stress test. 75-year-old man with a history of chest tightness. Resting EKG demonstrates sinus rhythm with a rate of 59 bpm. Resting blood pressure is 122/70 mmHg. 0.4 mg of regadenoson was infused per usual protocol followed by rapid intravenous saline flush injection. Continuous EKG monitoring was performed. The maximum heart rate was 90 bpm which was 62% of max impacted heart rate the maximum workload was 1 metabolic equivalent. At rest there were no ST or T wave changes noted to suggest ischemia and at peak infusion nonspecific ST changes were noted which did not meet the criteria for ischemia. No clinical angina is noted. The final blood pressure was 124/62 mmHg. Myocardial perfusion protocol. 15 mCi of technetium 99m sestamibi was injected at rest. 0.4 mg of regadenoson was infused per usual protocol. At peak infusion 45 mCi of technetium 99m sestamibi was injected stress images were obtained stress and rest images were reconstructed and compared in the short axis vertical long and horizontal long axis. Gated images were not obtained. Perfusion SPECT analysis: Review of the stress images demonstrate normal uptake of tracer noted in all areas of the myocardium. The resting images similar demonstrated normal uptake of tracer noted in all areas of the myocardium. No areas of reversibility are noted to suggest ischemia and no previous infarct is noted. Conclusion: Normal pharmacologic myocardial perfusion stress test.
== END | disposition home or self-care (01) ==
PROVIDERS: PCP Family Medicine; Referring Provider Physician Assistant Medical; Visit Provider Physician Assistant Medical
DX: R07.89 Other chest pain (principal); I49.3 Ventricular premature depolarization; I10 Essential (primary) hypertension
CPT/HCPCS: 78452; 93017; A9500; A4216; J2785